=== PATIENT | male | born 1950 | race Caucasian/White ===

== ENCOUNTER 2019-10-22 10:25 | Outpatient (CLI) | payer MEDICARE, OTHER ==
--- NOTE | 2019-10-22 11:47 | ULT ---
ABDOMINAL ULTRASOUND COMPLETE: Date: 10/22/2019 HISTORY: Bloating and discomfort. FINDINGS: Diffuse increased liver echogenicity, evidence for fatty change. The gallbladder demonstrates no evid ence of gallstones, wall thickening, edema, or pericholecystic fluid. No focal liver mass. Common bruno e duct is 0.5 cm. Visualized pancreas, IVC, aorta, and spleen are unremarkable. Kidneys show no hydro nephrosis or perinephric process. IMPRESSION: Evidence for increased liver echogenicity consistent with fatty change. No evidence of gallstones or other acute process. POS: OFF
== END 2019-10-22 10:26 | disposition home or self-care (01) ==
LOC: BICULT 10:25
PROVIDERS: ATTEND Internal Medicine Gastroenterology
DX: R14.0 Abdominal distension (gaseous) (principal); R93.2 Abnormal findings on diagnostic imaging of liver and biliary tract
CPT/HCPCS: 93975

== ENCOUNTER 2019-10-28 14:31 | Outpatient (CLI) | payer MEDICARE, OTHER ==
--- NOTE | 2019-10-28 14:47 | RAD ---
EXAM: Two views chest PROVIDED CLINICAL HISTORY: Nonalcoholic fatty liver disease. Polyp in the colon. History of smoking. COMPARISON: None FINDINGS: Cardiac silhouette and pulmonary vasculature are within normal limits. There is suggestion of emphys ematous changes as well as parenchymal scarring in each lung apex. No consolidation or pleural fluid is seen. Mild degenerative changes are noted in the spine. IMPRESSION: Mild chronic lung changes without evidence of an acute cardiopulmonary process..
== END 2019-10-28 14:32 | disposition home or self-care (01) ==
LOC: BICRAD 14:31
PROVIDERS: ATTEND Internal Medicine Gastroenterology
DX: K63.5 Polyp of colon (principal); R14.0 Abdominal distension (gaseous); K76.0 Fatty (change of) liver, not elsewhere classified
CPT/HCPCS: 71046

== ENCOUNTER 2020-12-21 13:28 | Outpatient (CLI) | payer MEDICARE, OTHER | END 2020-12-21 13:29 | disposition home or self-care (01) | LOC: BICCT 13:28 | PROVIDERS: ATTEND Family Medicine | DX: Z12.2 Encounter for screening for malignant neoplasm of respiratory organs (principal); F17.219 Nicotine dependence, cigarettes, with unspecified nicotine-induced disorders; J44.9 Chronic obstructive pulmonary disease, unspecified | CPT/HCPCS: 71271 ==